=== PATIENT | male | born 1995 | race Caucasian/White ===

== ENCOUNTER 2021-02-14 13:29 | Observation (INO) ==
[2021-02-14] MEDS ORDERED: Pantoprazole 40 MG VIAL IVP ONE (13:38)
[2021-02-14] MEDS ORDERED: Ondansetron 4 MG/2 ML VIAL IVP ONE (13:38)
[2021-02-14] MEDS ORDERED: 0.9 % Sodium Chloride 1,000 ML IVC ONE ×2 (13:38→15:17)
[2021-02-14 13:58] LABS: Basophils # 0.1 K/mcL (0.0-0.2); Basophils % 0.3 %; Eosinophils # 0.1 K/mcL (0.0-0.6); Eosinophils % 0.3 %; Hematocrit 41.6 % (37.5-50.1); Hemoglobin 13.8 g/dL (12.9-16.9); Immature Granulocytes % 0.6 % (0-4); Lymphocytes # 1.3 K/mcL (0.6-4.6); Lymphocytes % 6.7 %; Mean Corpuscular HGB Conc 33.2 g/dL (31.6-35.5); Mean Corpuscular Volume 96.5 fL (83.0-100.0); Mean Platelet Volume 9.8 fL (9.4-12.4); Monocytes # 1.4 K/mcL (0.0-1.3); Neutrophils # 16.8 K/mcL (1.6-8.9); Platelet Count 293 K/mcL (140-400); Red Blood Count 4.31 M/mcL (4.19-5.50); Red Cell Distribution Width 11.7 % (11.5-14.5); Segmented Neutrophils % 85.1 %; White Blood Count 19.7 K/mcL (4.3-11.1)
[2021-02-14 14:05] LABS: INR 1.1; Prothrombin Time 12.8 Seconds (9.4-12.1)
[2021-02-14 14:19] LABS: Alanine Aminotransferase 36 Units/L (7-52); Albumin 4.3 g/dL (3.5-5.7); Albumin/Globulin Ratio 1.7 (1.1-2.2); Alkaline Phosphatase 55 Units/L (34-104); Aspartate Amino Transferase 29 Units/L (13-39); BUN/Creatinine Ratio 43 (6-26); Blood Urea Nitrogen 32 mg/dL (6-20); Calcium 8.9 mg/dL (8.6-10.3); Carbon Dioxide 27 mEq/L (23-29); Chloride 102 mEq/L (98-107); Globulin 2.6 g/dL (2.4-3.5); Glucose 157 mg/dL (70-105); Lipase 9 Units/L (11-82); Osmolality,Calculated 296 (280-300); Potassium 4.6 mEq/L (3.5-5.1); Sodium 138 mEq/L (136-145); Total Protein 6.9 g/dL (6.4-8.9); eGFR For African Americans > 60 (> 60); eGFR For Non-African Americans > 60 (> 60)
[2021-02-14] MEDS: Octreotide 400 MCG in 0.9 % Sodium Chloride 100 ML IVC SCH (16:24)
[2021-02-14] MEDS ORDERED: Ondansetron 4 MG/2 ML VIAL IVP PRN (17:10)
[2021-02-14] MEDS ORDERED: Acetaminophen 325 MG TABLET PO PRN (17:10)
[2021-02-14] MEDS ORDERED: *HR* LORazepam 2 MG/ML VIAL IVP PRN (17:10)
[2021-02-14] MEDS ORDERED: Naloxone 0.4 MG/ML INJ IVP PRN (17:10)
[2021-02-14] MEDS ORDERED: Thiamine (B-1) 200 MG in 0.9 % Sodium Chloride 50 ML IVPB ONE (17:13)
[2021-02-14] MEDS: Ringers Solution, Lactated 1,000 ML IVC SCH (18:44)
[2021-02-14] MEDS: Pantoprazole 40 MG VIAL IVP SCH (18:48)
[2021-02-14] MEDS: Folic Acid 1 MG TABLET PO SCH (18:52)
[2021-02-14] MEDS: Vitamin B Complex/Vit C/Vit E 1 EACH TABLET PO SCH (18:52)
[2021-02-14] MEDS: Thiamine (B-1) 100 MG TABLET PO SCH (18:54)
[2021-02-14] MEDS ORDERED: Melatonin 3 MG TABLET PO PRN (21:00)
[2021-02-15] MEDS: Octreotide 400 MCG in 0.9 % Sodium Chloride 100 ML IVC SCH ×2 (00:01→10:59)
[2021-02-15] MEDS: Ringers Solution, Lactated 1,000 ML IVC SCH (04:40)
[2021-02-15] MEDS: Pantoprazole 40 MG VIAL IVP SCH (04:41)
[2021-02-15 07:27] LABS: Hematocrit 29.2 % (37.5-50.1); Mean Corpuscular HGB Conc 33.6 g/dL (31.6-35.5); Mean Corpuscular Hemoglobin 32.5 pg (28.0-33.3); Mean Corpuscular Volume 96.7 fL (83.0-100.0); Platelet Count 175 K/mcL (140-400); Red Blood Count 3.02 M/mcL (4.19-5.50); Red Cell Distribution Width 11.9 % (11.5-14.5)
[2021-02-15 07:29] LABS: Hemoglobin 9.8 g/dL (12.9-16.9); White Blood Count 7.9 K/mcL (4.3-11.1)
[2021-02-15] MEDS ORDERED: Ondansetron 4 MG/2 ML VIAL ONE ×2 (07:42→08:17)
[2021-02-15] MEDS ORDERED: *HR* FentaNYL (PF) 100 MCG/2 ML VIAL ONE (07:42)
[2021-02-15] MEDS ORDERED: *HR* Succinylcholine 200 MG/10 ML VIAL IVP ONE (07:42)
[2021-02-15] MEDS ORDERED: Lidocaine HCL 4 ML Topical Solution (Laryng-O-Jet Kit Sterile Pak) TP ONE ×2 (07:42→08:17)
[2021-02-15] MEDS ORDERED: *HR* Propofol 200 MG/20 ML VIAL IVP ONE (07:43)
[2021-02-15] MEDS ORDERED: *HR* Midazolam HCl 2 MG/2 ML VIAL ONE (07:43)
[2021-02-15 07:54] LABS: Alanine Aminotransferase 27 Units/L (7-52); Albumin 3.2 g/dL (3.5-5.7); Albumin/Globulin Ratio 1.7 (1.1-2.2); Alkaline Phosphatase 47 Units/L (34-104); Aspartate Amino Transferase 31 Units/L (13-39); BUN/Creatinine Ratio 17 (6-26); Bilirubin,Total 0.7 mg/dL (0.3-1.0); Blood Urea Nitrogen 13 mg/dL (6-20); Calcium 8.2 mg/dL (8.6-10.3); Carbon Dioxide 27 mEq/L (23-29); Chloride 109 mEq/L (98-107); Globulin 1.9 g/dL (2.4-3.5); Glucose 131 mg/dL (70-105); Magnesium 1.9 mg/dL (1.6-2.6); Osmolality,Calculated 290 (280-300); Sodium 139 mEq/L (136-145); Total Protein 5.1 g/dL (6.4-8.9); eGFR For African Americans > 60 (> 60); eGFR For Non-African Americans > 60 (> 60)
[2021-02-15] MEDS: Thiamine (B-1) 100 MG TABLET PO SCH (10:49)
[2021-02-15] MEDS: Folic Acid 1 MG TABLET PO SCH (10:49)
[2021-02-15] MEDS: Vitamin B Complex/Vit C/Vit E 1 EACH TABLET PO SCH (10:49)
[2021-02-15 10:53] VITALS: BP 116/73
== END 2021-02-15 12:31 | disposition home or self-care (01) ==
LOC: EMEROOARM 13:29 → 3ANU 13:29 → SUATTDRO 15:14 → 3ANU 17:18
PROVIDERS: ADMIT Internal Medicine; ATTEND Internal Medicine